=== PATIENT | female | born 1975 | race Caucasian/White ===

== ENCOUNTER 2020-10-10 14:58 | Emergency (ER) | payer MEDICAID ==
[~2020-10-10] VITALS: Ht 162.6 cm; Wt 77.1 kg
[2020-10-10 15:59] LABS: HEMATOCRIT 40.9 % (31.2-41.9); MEAN CORPUSCULAR HEMOGLOBIN 28.6 uug (24.7-32.8); MEAN CORPUSCULAR VOLUME 85.1 fL (75.5-95.3); PLATELET COUNT (AUTO) 255 K/uL (179-408)
[2020-10-10 16:03] LABS: CREATININE 0.9 mg/dL (0.6-1.3); POTASSIUM 4.1 mmol/L (3.5-5.1)
[2020-10-10 16:16] LABS: BILIRUBIN,TOTAL 0.3 mg/dL (0.2-1.0)
[2020-10-10] MEDS ORDERED: MAG HYDROX/AL HYDROX/SIMETH 30 ML LIQUID UDC PO ONE (17:15)
[2020-10-10] MEDS ORDERED: LIDOCAINE VISCUS 2% 15 ML UDC MM ONE (17:15)
[2020-10-10] MEDS ORDERED: PANTOPRAZOLE SODIUM 40 MG TABLET.DR PO ONE ×2 (17:15→17:37)
[2020-10-10] MEDS ORDERED: PANTOPRAZOLE SODIUM 40 MG VIAL ONE (17:34)
[2020-10-10] MEDS ORDERED: MAG HYDROX/AL HYDROX/SIMETH 30 ML LIQUID UDC ONE (17:34)
[2020-10-10] MEDS ORDERED: LIDOCAINE VISCUS 2% 15 ML UDC ONE (17:34)
--- NOTE | 2020-10-10 18:45 | NUR ---
Repeat trop drawn by lab, pt resting with NAD noted.
--- NOTE | 2020-10-10 19:05 | NUR ---
Recieved report from DOMENIC Thomason
--- NOTE | 2020-10-10 20:46 | NUR ---
Patient discharged to home in stable condition. Written and verbal after care instructions given. Patient verbalizes understanding of instructions. Stressed follow up or return to ER for worsening s/s.No signs of distress. Vss. steady gait. All belongings taken.
[2020-10-10 20:48] VITALS: BP 112/48
== END 2020-10-10 20:51 | disposition home or self-care (01) ==
LOC: ER 14:58
DX: R07.9 Chest pain, unspecified (principal); R06.02 Shortness of breath; Z20.822 Contact with and (suspected) exposure to COVID-19; Z86.16 Personal history of COVID-19; R94.31 Abnormal electrocardiogram [ECG] [EKG]
CPT/HCPCS: 36415; 70030-TC; 71045; 85025; 93005; A4663; C9113

== ENCOUNTER 2024-12-01 10:39 | Emergency (ER) | payer MEDICAID, OTHER ==
[~2024-12-01] VITALS: Ht 162.6 cm; Wt 72.6 kg
[2024-12-01 11:00] LABS: PLATELET COUNT (AUTO) 238 K/uL (179-408); RED BLOOD CELL COUNT(AUTO) 5.11 MIL/uL (3.63-4.92); RED CELL DISTRIBUTION WIDTH 12.9 % (12.3-17.7); WHITE BLOOD COUNT (AUTO) 5.2 K/uL (3.8-11.8)
[2024-12-01] MEDS: IV NORMAL SALINE 1000 ML BAG IV ONE (11:09)
[2024-12-01 11:14] LABS: CREATININE 0.6 mg/dL (0.6-1.3); SODIUM SERUM 144.0 mmol/L (136-145); UREA NITROGEN, BLOOD 8.0 mg/dL (7-18)
[2024-12-01 12:03] VITALS: BP 137/82
[2024-12-01 12:20] VITALS: BP 130/84; O2SAT 99
== END 2024-12-01 12:21 | disposition home or self-care (01) ==
LOC: ER 10:39
DX: R55 Syncope and collapse (principal); T41.3X5A Adverse effect of local anesthetics, initial encounter; R25.1 Tremor, unspecified; R42 Dizziness and giddiness; R07.9 Chest pain, unspecified; R53.1 Weakness; Z88.8 Allergy status to other drugs, medicaments and biological substances; Y92.89 Other specified places as the place of occurrence of the external cause
CPT/HCPCS: 99285; 96360; 71045; 80048; 82962; 85025; 36415; 93005; J7040; A4606; A4663